=== PATIENT | male | born 1985 | race Caucasian/White ===

== ENCOUNTER 2019-06-04 21:10 | Emergency (ER) | payer SELFPAY ==
[2019-06-04] MEDS ORDERED: Omeprazole 20 MG Cap.CR PO ONE (21:32)
[2019-06-04] MEDS ORDERED: Alum Hydrox/Mag Hydrox/Simeth 15 ML, Lidocaine 2% 5 ML PO ONE ×2 (21:32)
--- NOTE | 2019-06-04 21:37 | EDM.PDOC ---
ED HPI GENERAL MEDICAL PROBLEM - General Chief Complaint: Gastrointestinal Problem Stated Complaint: ABDOMINAL PAIN Time Seen by Provider: 06/04/19 21:34 Source of Information: Reports: Patient - History of Present Illness INITIAL COMMENTS - FREE TEXT/NARRATIVE: The patient is a 33-year-old male who presents to the ER for a flareup of "heartburn". The patient states that he has had this for years and he has a family history of it as well. He states that he drank some Pepsi and then his stomach started getting upset and he had the typical burning sensation in his epigastric region moving up into his chest. He has a previous prescription of omeprazole but he only takes it as needed. He took a tablet evening and it did not help. He states that in [place] he is from you need a prescription for omeprazole. He takes 20 mg. ED ROS GENERAL - Review of Systems Review Of Systems: See Below (Positive for heartburn, negative for abdominal pain, negative shortness of breath, negative for palpitations, negative for dyspnea exertion, negative for hemoptysis, all other Positives and pertinent negatives as per HPI. All other pertinent systems were reviewed and are negative ) ED EXAM, GI/ABD - Physical Exam Exam: See Below Text/Narrative:: Constitutional: No acute distress, Non-toxic appearance. HEENT: Normocephalic, Atraumatic, EOMI Neck: Normal range of motion, No stridor, trachea midline Respiratory: No respiratory distress, No tachypnea, lungs are clear, no wheezes , rales or rhonchi Cardiovascular: Regular rate and rhythm Gastrointestinal: Deferred Genital / Urinary: Deferred Musculoskeletal: All four extremities present and atraumatic Back: FROM Integument: Warm, Dry, Color is ethnicity appropriate, No rash. Neuro: Alert, Awake, No focal deficits noted Psych: Affect, Judgement, mood normal Course - Vital Signs Text/Narrative:: The patient has been seen for this numerous times before and has been worked up for it and has a known history and at this time he is not giving me anything which sounds concerning for acute coronary syndrome, pulmonary embolism, etc. There is a definite language barrier and we explained to the patient in detail that #1, omeprazole is [id number] even in [place], #2, omeprazole needs to be taken daily as a preventative not for acute flareups #3, we gave him instructions on how to take omeprazole as well as talking with the pharmacist about various [id number] options for an acute flareup. He will be given a dose of omeprazole here in the ER as well as a GI cocktail and is stable for discharge. Departure - Departure Time of Disposition: 21:34 Disposition: Home, Self-Care 01 Condition: Good Clinical Impression: Esophagitis, Gastritis - Discharge Information Referrals: PCP,None [Primary Care Provider] - Additional Instructions: Omeprazole, with the medications like it called proton pump inhibitors, I supposed to be taking once a day, every day to prevent heartburn. They cannot help you when you have a flareup. Talk with the pharmacist at the store you go to as there are many options to help flareups of heartburn.
== END 2019-06-04 22:10 | disposition home or self-care (01) ==
LOC: MW.ED 21:10
DX: K20.9 Esophagitis, unspecified (principal); K29.70 Gastritis, unspecified, without bleeding
CPT/HCPCS: 99283; A9270